=== PATIENT | female | born 1960 | race African-American/Black ===

== ENCOUNTER 2019-03-23 13:28 | Emergency (ER) | payer MEDICAID ==
[~2019-03-23] VITALS: Ht 172.7 cm; Wt 78.0 kg
[2019-03-23] MEDS ORDERED: CLONIDINE 0.2MG TABLET PO ONE (18:15)
[2019-03-23 18:57] LABS: HEMATOCRIT. 46.9 % (36.0-48.0); HEMOGLOBIN. 15.7 g/dL (12.0-16.0); MEAN CORPUSCULAR HEMOGLOBIN 29.8 pg (28.0-32.0); MEAN CORPUSCULAR VOLUME 88.8 fL (81.0-99.0); MEAN PLATELET VOLUME 9.9 fl (7.4-10.4); PLATELET 274 x1000/uL (130-400); RED BLOOD CELL COUNT 5.28 mill/uL (4.2-5.4); RED CELL DISTRIBUTION WIDTH 13.2 % (11.6-14.6)
[2019-03-23 19:01] LABS: CHLORIDE 99 mEq/L (98-107)
[2019-03-23 19:40] LABS: PLATELET ESTIMATE NORMAL
[2019-03-23] MEDS: POTASSIUM CHLORIDE 20MEQ TABLET SR PO NR ×2 (22:51→23:16)
[2019-03-23 23:00] VITALS: BP 127/45
== END 2019-03-23 23:18 | disposition home or self-care (01) ==
LOC: ER 13:28
DX: I10 Essential (primary) hypertension (principal); E78.00 Pure hypercholesterolemia, unspecified
CPT/HCPCS: 36415; 71045; 83880; 84484; 93005; 99284